=== PATIENT | female | born 1935 | race Two or more races ===

== ENCOUNTER 2018-10-27 08:55 | Day surgery (SDC) | payer MEDICARE, OTHER ==
[~2018-10-27] VITALS: Ht 144.8 cm; Wt 68.0 kg
[2018-10-27] VITALS (8 sets, daily range): BP systolic 123–142; BP diastolic 58–69
[~2018-10-27 08:55] MED LIST: AMLODIPINE BESY10 MG ORAL; DICYCLOMINE HCL10 MG PO; HYDROCHLOROTHIA25 MG ORAL; ISOSORBIDE MONO20 MG PO; LOSARTAN POTASS50 MG ORAL; MECLIZINE HCL25 MG ORAL; MISOPROSTOL200 MCG PO
[2018-10-27] MEDS ORDERED: Midazolam 2mg/2ml Inj ONE (10:40)
--- NOTE | 2018-10-27 10:41 | Pre-Procedure Note/Attestation ---
Pre-Procedure Note/Attestation Complete Prior to Procedure Planned Procedure: not applicable Procedure Narrative: esophagogastroduodenoscopy and colonoscopy Indications for Procedure Pre-Operative Diagnosis: screening colon, GERD Attestation I attest that I discussed the nature of the procedure; its benefits; risks and complications; and alternatives (and the risks and benefits of such alternatives ), prior to the procedure, with the patient (or the patient's legal business representative). I attest that, if there was a reasonable possibility of needing a blood transfusion, the patient (or the patient's legal business representative) was given the [facility] standardized written summary, pursuant to the August [place] Blood Safety Act ([place] Health and Safety Code # 1645, as amended). I attest that I re-evaluated the patient just prior to the surgery and that there has been no change in the patient's H&P, except as documented below: Justen Aviles MD Oct 27, 2018 10:41
--- NOTE | 2018-10-27 10:42 | Short Stay Surgery H&P ---
History of Present Illness History of Present Illness Chief Complaint see recent office note HPI Neeta Hernandez is a 83 year old female who was admitted on for Gerd, Colon Screening Patient History Allergies: Coded Allergies: No Known Allergies (Unverified , 10/27/18) Medication History Scheduled Amlodipine Besylate* (Amlodipine Besylate*), 10 MG ORAL DAILY, (Reported) Dicyclomine Hcl* (Dicyclomine Hcl*), 10 MG PO QID, (Reported) Hydrochlorothiazide* (Hydrochlorothiazide*), 25 MG ORAL DAILY, (Reported) Isosorbide Mononitrate (Isosorbide Mononitrate), 60 MG PO DAILY, (Reported) Losartan Potassium* (Losartan Potassium*), 100 MG ORAL DAILY, (Reported) Meclizine Hcl* (Meclizine*), 25 MG ORAL THREE TIMES A DAY, (Reported) Misoprostol* (Cytotec*), 200 MCG PO QID, (Reported) Physical Exam Vital Signs Last Vital Signs Date Time Temp Pulse Resp B/P (MAP) Pulse Ox O2 Delivery O2 Flow Rate FiO2 10/27/18 09:46 Room Air 10/27/18 09:33 97.7 69 18 142/64 96 Plan Attestation Are the patient's medical conditions optimized for surgery? Justen Aviles MD Oct 27, 2018 10:41
--- NOTE | 2018-10-27 10:52 | Anethesia Preoperative Eval ---
Anesthesia Pre-op PMH/ROS General Date of Evaluation: Oct 27, 2018 Time of Evaluation: 10:49 Anesthesiologist: Radha ASA Score: ASA 2 Mallampati Score Class I : Soft palate, uvula, fauces, pillars visible Class II: Soft palate, uvula, fauces visible Class III: Soft palate, base of uvula visible Class IV: Only hard plate visible Mallampati Classification: Class I Surgeon: Traci Diagnosis: GERD Surgical Procedure: EGD/Colon Anesthesia History: none Family History: no anesthesia problems Allergies: Coded Allergies: No Known Allergies (Unverified , 10/27/18) Medications: see eMAR Patient NPO?: Yes NPO Date: Oct 26, 2018 NPO Time: 23:00 Past Medical History Cardiovascular: Reports: HTN Gastrointestinal/Genitourinary: Reports: GERD, other - diverticulosis Musculoskeletal/Integumentary: Reports: OA, other - muscle pain, unsteady gait PSxH Narrative: bilateral knee replacement Anesthesia Pre-op Phys. Exam Physician Exam Last Vital Signs Date Time Temp Pulse Resp B/P (MAP) Pulse Ox O2 Delivery O2 Flow Rate FiO2 10/27/18 09:46 Room Air 10/27/18 09:33 97.7 69 18 142/64 96 Constitutional: NAD Neurologic: CN 2-12 intact Cardiovascular: RRR Respiratory: CTA Gastrointestinal: S/NT/ND Airway Exam Mallampati Score: Class I MO: full ROM: full Teeth: missing, intact Dentures: upper, lower Anesthesia Pre-op A/P Studies Pre-op Studies: EKG - NSR Risk Assessment & Plan Assessment: A&Ox4 Plan: MAC Status Change Before Surgery: No Pre-Antibiotics Given Within 1 Hr of Incision: Joyce Bermudez CRNA Oct 27, 2018 10:52
[2018-10-27] MEDS ORDERED: Propofol 200mg/20ml IV ONE (11:00)
--- NOTE | 2018-10-27 11:21 | Endoscopy Procedure Note ---
Endoscopy Procedure Note General Indication for Procedure: anemia Procedures Performed: EGD, colonoscopy Operative Findings/Diagnosis: gastritis, one colon polyp Specimen: yes Pt Tolerated Procedure Well: Yes Estimated Blood Loss: none Anesthesia Anesthesiologist: tram Anesthesia: MAC Inserted Devices Implant(s) used?: No Quality Quality of Bowel Preparation: Good Did scope reach the cecum?: Yes Was there any complications?: No GI Core Measures 50 yrs or older w/o bx or poly: No 10yrs. F/U not recommended: Yes If not recommended, why?: Above average risk 10 yrs. F/U needed: Yes 18 years or older w/prev. colo: No Justen Aviles MD Oct 27, 2018 11:21
--- NOTE | 2018-10-27 11:50 | Immediate Post-Op Evaluation ---
Immediate Post-Op Evalulation Immediate Post-Op Evalulation Procedure: EGD/Colon Date of Evaluation: Oct 27, 2018 Time of Evaluation: 11:35 IV Fluids: NSS 450 ml Blood Products: 0 Estimated Blood Loss: 0 Urinary Output: 0 Blood Pressure Systolic: 123 Blood Pressure Diastolic: 69 Pulse Rate: 55 Respiratory Rate: 16 O2 Sat by Pulse Oximetry: 100 Temperature (Fahrenheit): 97.3 Pain Score (1-10): 0 Nausea: No Vomiting: No Complications none Patient Status: awake, reacts, patent Hydration Status: adequate Given Within 1 Hr of Incision: Joyce Bermudez CRNA Oct 27, 2018 11:50
--- NOTE | 2018-10-27 11:51 | 48 Hour Post Anesthesia Eval ---
Post Anesthesia Evaluation Procedure: EGD/Colon Date of Evaluation: Oct 27, 2018 Time of Evaluation: 11:51 Blood Pressure Systolic: 130 0: 68 Pulse Rate: 55 Respiratory Rate: 18 Temperature (Fahrenheit): 97.4 O2 Sat by Pulse Oximetry: 99 Airway: patent Nausea: No Vomiting: No Pain Intensity: 0 Hydration Status: adequate Mental Status/LOC: patient returned to baseline Follow-up care needed: patient intructions given Joyce Garcia CRNA Oct 27, 2018 11:51
--- NOTE | 2018-10-27 17:45 | Procedure Note ---
DATE OF PROCEDURE: 10/27/2018 SURGEON: Justen Aviles M.D. REFERRING PHYSICIAN: Dr. Mariee. PROCEDURE: Upper endoscopy with biopsy and colonoscopy with biopsy. ANESTHESIA: Per Radha THORPE. INSTRUMENT: Olympus adult flexible upper endoscope and colonoscope. INDICATIONS: Abdominal pain, weight loss, and anemia. REASON FOR PROCEDURE: The procedure, risks, benefits, and possible consequences, including hemorrhage, aspiration, perforation and infection, and alternative treatments, were explained to the patient/legal guardian by Dr. Justen Aviles and the patient/legal guardian understood and accepted these risks. PROCEDURE IN DETAIL: After informed consent was obtained and the patient was adequately sedated, the Olympus upper endoscope was advanced from the mouth into the second portion duodenum and retroflexion was performed in the stomach. The patient had evidence of diffuse gastritis. Random biopsy from antrum and body was obtained to rule out H. pylori infection. At this time, the upper endoscope was retrieved and the patient was turned over for colonoscopy. First, rectal exam was performed, which was normal except for a weak muscle tone in the rectum. Then, the scope was advanced from the rectum into the cecum then subsequently to the terminal ileum. Quality of prep was good. The patient had evidence of diverticulosis, moderate in the left colon. One diminutive polyp was removed from the sigmoid colon. Retroflexion of rectum showed evidence of internal hemorrhoids. SUMMARY OF FINDINGS: 1. Gastritis, status post biopsy. 2. One colonic polyp removed, see above for details. 3. Diverticulosis. 4. Internal hemorrhoids. RECOMMENDATIONS: Follow up biopsy results and treat accordingly. I want to thank Dr. Mariee for this kind referral. Justen Aviles M.D. DR: KIRA JOB#: [id number] CC: Dr. Mariee
== END 2018-10-27 12:50 | disposition home or self-care (01) ==
LOC: GAS 08:55
DX: K29.50 Unspecified chronic gastritis without bleeding (principal); K63.5 Polyp of colon; K57.90 Diverticulosis of intestine, part unspecified, without perforation or abscess without bleeding; K64.8 Other hemorrhoids; K21.9 Gastro-esophageal reflux disease without esophagitis; I10 Essential (primary) hypertension; M19.90 Unspecified osteoarthritis, unspecified site; B96.81 Helicobacter pylori [H. pylori] as the cause of diseases classified elsewhere
CPT/HCPCS: 45380; 93005; J2250; J2405; J2704; 94003; 94150

== ENCOUNTER 2018-11-30 08:59 | Outpatient (CLI) | payer MEDICARE, OTHER ==
--- NOTE | 2018-11-30 09:19 | General Progress Note ---
Assessment/Plan Problem List: (1) HP positive gastritis Assessment/Plan: s/p recent EGD and colonoscopy treat for HP RTC 3 monts for BT Subjective ROS Limited/Unobtainable: Yes Allergies: Coded Allergies: No Known Allergies (Unverified , 10/27/18) Objective General Appearance: alert EENT: normal ENT inspection Neck: supple Cardiovascular: normal rate Respiratory/Chest: lungs clear Abdomen: normal bowel sounds, non tender, soft Extremities: non-tender Justen Aviles MD Nov 30, 2018 09:19
[2018-11-30 12:30] VITALS: BP 135/66
== END 2018-11-30 11:59 | disposition home or self-care (01) ==
LOC: PAN 08:59
DX: K29.70 Gastritis, unspecified, without bleeding (principal); B96.81 Helicobacter pylori [H. pylori] as the cause of diseases classified elsewhere
CPT/HCPCS: 99212

== ENCOUNTER 2019-03-15 08:41 | Outpatient (CLI) | payer MEDICARE, OTHER ==
--- NOTE | 2019-03-15 09:59 | General Progress Note ---
Assessment/Plan Problem List: (1) Diverticulosis ICD Codes: K57.90 - Diverticulosis of intestine, part unspecified, without perforation or abscess without bleeding SNOMED: [id number] (2) HP positive gastritis Assessment/Plan: s/p HP treatment check Breath test today Subjective ROS Limited/Unobtainable: Yes Allergies: Coded Allergies: No Known Allergies (Unverified , 10/27/18) Objective General Appearance: alert EENT: normal ENT inspection Neck: supple Cardiovascular: normal rate Respiratory/Chest: lungs clear Abdomen: normal bowel sounds, non tender, soft Extremities: non-tender Justen Aviles MD Mar 15, 2019 09:59
[2019-03-15 14:53] VITALS: BP 126/69
== END 2019-03-15 10:41 | disposition home or self-care (01) ==
LOC: PAN 08:41
DX: K57.90 Diverticulosis of intestine, part unspecified, without perforation or abscess without bleeding (principal); K29.70 Gastritis, unspecified, without bleeding; B96.81 Helicobacter pylori [H. pylori] as the cause of diseases classified elsewhere
CPT/HCPCS: 83013; G0463; 99212